=== PATIENT | male | born 2000 ===

== ENCOUNTER 2020-06-07 15:21 | Emergency (ER) | payer OTHER, SELFPAY ==
[2020-06-07 15:22] VITALS: BP 131/86; PULSE 72; RESP 18; O2SAT 100; BMI 28.1
--- NOTE | 2020-06-07 15:25 | DI.RAD.S_ITS ---
PROCEDURE: XR ELBOW RT MIN 3V INDICATIONS: Right elbow pain post fall TECHNIQUE: Three views of the elbow were acquired. COMPARISON: None. FINDINGS: Bones: No fractures or dislocations. No suspicious bony lesions. Soft tissues: No elbow joint effusion. No suspicious soft tissue calcifications. IMPRESSION: No fracture, dislocation, or joint effusion, or other acute finding. Dictated by: Alessandro Ragsdale M.D. on 06/07/2020 at 16:17 Approved by: Alessandro Ragdsale M.D. on 06/07/2020 at 16:19
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
[2020-06-07] MEDS: KETOROLAC 60 MG/2 ML VIAL 30 MG IV (15:45)
[2020-06-07] MEDS: MORPHINE 2 MG/ML INJ IV (16:29)
[2020-06-07] MEDS: ONDANSETRON 4 MG/2 ML INJ IV (16:29)
--- NOTE | 2020-06-07 16:57 | PC.NURSE ---
Pt has pain, left ankle and right elbow. Abrasions to left shoulder/right side of back/right thigh/left hand. Deeper abrasion to right hip. Right proximal forearm and elbow with deeper wound, oozing blood at times.
[2020-06-07 17:00] VITALS: BP 117/57; PULSE 78; O2SAT 100
== END 2020-06-07 17:39 | disposition home or self-care (01) ==
PROVIDERS: Emergency Provider Nurse Practitioner
DX: S30.810A Abrasion of lower back and pelvis, initial encounter (principal); S50.311A Abrasion of right elbow, initial encounter; M25.551 Pain in right hip; M25.572 Pain in left ankle and joints of left foot; V19.9XXA Pedal cyclist (driver) (passenger) injured in unspecified traffic accident, initial encounter
CPT/HCPCS: 36415; 73080; 73502; 73610; 96374; 96375; 99284; J1885; J2270; J2405